=== PATIENT | male | born 1980 | race African-American/Black ===

== ENCOUNTER 2016-12-13 19:29 | Inpatient (IN) | payer MEDICAID ==
[~2016-12-13] VITALS: Ht 182.9 cm; Wt 81.6 kg
[2016-12-13] MEDS ORDERED: METOCLOPRAMIDE HCL 10 MG/2 ML VIAL IV ONE (20:15)
[2016-12-13] MEDS ORDERED: KETOROLAC TROMETHAMINE 15 MG INJ IV ONE (20:15)
[2016-12-13 20:37] LABS: *BILIRUBIN,URIN NEGATIVE (NEGATIVE); *BLOOD, URINE NEGATIVE (NEGATIVE); *CLARITY,URINE CLEAR (CLEAR); *COLOR,URINE YELLOW (YELLOW); *KETONES,URINE 1+ (NEGATIVE); *PROTEIN,URINE 1+ (NEGATIVE); *UROBILINOGEN,URINE 0.2 E.U./dl (NORMAL); LEUKOCYTE ESTERASE ,URINE NEGATIVE (NEGATIVE); NITRITE, URINE NEGATIVE (NEGATIVE); UGLUCOSE NEGATIVE (NEGATIVE)
[2016-12-13 20:40] LABS: BASOPHILS # (AUTO) 0.1 K/uL (0.0-8.0); HEMATOCRIT 44.5 % (40-50); HEMOGLOBIN 14.7 G/DL (14.0-18.0); LYMPHOCYTES % (AUTO) 20.5 % (20.5-51.5); MEAN CORPUSCULAR HEMOGLOBIN 32.1 UUG (27.0-31.0); MEAN CORPUSCULAR HGB CONC 33 g/dL (32.0-37.0); MEAN CORPUSCULAR VOLUME 96.8 FL (82.0-92.0); MONOCYTES # (AUTO) 0.4 K/UL (0.1-1.30); NEUTROPHILS # (AUTO) 7.2 K/UL (1.8-8.9); NEUTROPHILS % (AUTO) 74.5 % (38.5-71.5); PLATELET COUNT (AUTO) 199 K/UL (150-450); RED BLOOD CELL COUNT(AUTO) 4.59 MIL/UL (4.7-6.1); WHITE BLOOD COUNT (AUTO) 9.8 K/UL (4.0-11.2)
[2016-12-13 20:43] LABS: BACTERIA,URINE FEW /HPF (NONE SEEN); MUCUS,URINE MANY /LPF (0-FEW); RBC,URINE 0-3 /HPF (0-3); SQUAMOUS EPITHELIAL CELL,UR FEW /HPF (NONE SEEN); WBC,URINE 0-3 /HPF (0-3)
[2016-12-13 20:48] LABS: ETHANOL < 3 MG/DL (0-0)
[2016-12-13 20:50] LABS: ALANINE AMINOTRANSFERASE 26 U/L (16-63); ALKALINE PHOSPHATASE 76 U/L (50-136); ASPARTATE AMINOTRANSFERASE 21 U/L (15-37); BILIRUBIN,DIRECT 0.2 mg/dL (0.0-0.2); BILIRUBIN,TOTAL 0.7 mg/dL (0.2-1.0); CARBON DIOXIDE 27 mmol/L (21-32); CHLORIDE 102 mmol/L (98-107); CREATININE 1.2 mg/dL (0.6-1.3); GLUCOSE 100 mg/dL (74-106); POTASSIUM 3.6 mmol/L (3.5-5.1); TOTAL PROTEIN, SERUM 8.4 g/dL (6.4-8.2); UREA NITROGEN, BLOOD 10 mg/dL (7-18)
[2016-12-13] MEDS ORDERED: IBUPROFEN 800 MG TABLET PO ONE (21:00)
[2016-12-13] MEDS ORDERED: IBUPROFEN 800 MG TABLET ONE (21:05)
[2016-12-13 21:06] LABS: LIPASE 688 U/L (73-393)
[2016-12-13 21:08] LABS: ACETAMINOPHEN < 2.0 ug/mL (10-30)
[2016-12-13 21:23] LABS: *AMPHETAMINE, URINE POSITIVE (NEGATIVE); *BARBITURATE, URINE NEGATIVE (NEGATIVE); *CANNABINOID, URINE POSITIVE (NEGATIVE); *COCCAINE, URINE NEGATIVE (NEGATIVE); *OPIATE, URINE NEGATIVE (NEGATIVE); *PHENCYCLIDINE SCREEN,URINE NEGATIVE (NEGATIVE)
--- NOTE | 2016-12-13 21:24 | NUR ---
Call placed to [facility], Dr. Melgoza will be paged.
--- NOTE | 2016-12-13 22:08 | NUR ---
2nd call placed to [facility], Dr. Melgoza will be paged.
--- NOTE | 2016-12-13 22:35 | NUR ---
3rd call placed to [facility], Dr. Melgoza will be paged.
--- NOTE | 2016-12-13 23:10 | NUR ---
RECEIVED PATIENT VIA W/C FROM ER. PATIENT IS A/O X4. C/O MILD DISCOMFORT UPON ADMISSION TO FLOOR. NO RESP. DISTRESS NOTED. VSS. H/L INTACT AND PATENT, NOTED TO LEFT AC #18 GAUGE. ORIENTED TO ROOM AND CALL LIGHT. CALL LIGHT IN REACH. ALL NEEDS ATTENDED. WILL CONTINUE TO MONITOR.
[2016-12-13 23:15] VITALS: BP 124/74
[2016-12-14] MEDS ORDERED: IV NS 1000 ML 1,000 ML IV PRN (00:49)
[2016-12-14] MEDS ORDERED: LORAZEPAM 2 MG/1 ML VIAL IV PRN (01:00)
[2016-12-14] MEDS ORDERED: MORPHINE SULFATE 2 MG/1 ML DISP.SYRIN IV PRN (01:00)
[2016-12-14] MEDS ORDERED: ONDANSETRON 4 MG/2 ML VIAL IV PRN (01:00)
[2016-12-14] MEDS ORDERED: ACETAMINOPHEN 325 MG TABLET PO PRN (01:00)
[2016-12-14] MEDS ORDERED: ENOXAPARIN SODIUM 40 MG/0.4 ML DISP.SYRIN SQ SCH (01:00)
[2016-12-14] MEDS ORDERED: ZOLPIDEM 5 MG TABLET PO PRN (01:00)
[2016-12-14] MEDS ORDERED: ENOXAPARIN SODIUM 40 MG/0.4 ML DISP.SYRIN SQ ONE (01:30)
[2016-12-14 04:46] VITALS: BP 124/77
--- NOTE | 2016-12-14 06:35 | NUR ---
PATIENT ASLEEP IN BED. IVF INFUSING WELL TO LEFT AC ORDERED. DENIES PAIN. CALL LIGHT IN REACH. ALL NEEDS ATTENDED. WILL CONTINUE TO MONITOR AND ASSESS.
[2016-12-14 07:03] LABS: BILIRUBIN,TOTAL 0.9 mg/dL (0.2-1.0); MAGNESIUM 1.9 mg/dL (1.8-2.4); PHOSPHOROUS 3.4 mg/dL (2.5-4.9); POTASSIUM 3.7 mmol/L (3.5-5.1)
[2016-12-14 07:06] LABS: BASOPHILS % (AUTO) 0.1 % (0.0-2.0); EOSINOPHILS % (AUTO) 0.4 % (0.0-7.0); HEMATOCRIT 43.5 % (40-50); HEMOGLOBIN 14.5 G/DL (14.0-18.0); LYMPHOCYTES # (AUTO) 2.6 K/UL (0.8-4.8); LYMPHOCYTES % (AUTO) 38.3 % (20.5-51.5); MEAN CORPUSCULAR HEMOGLOBIN 32.3 UUG (27.0-31.0); MEAN CORPUSCULAR HGB CONC 33 g/dL (32.0-37.0); MEAN CORPUSCULAR VOLUME 96.7 FL (82.0-92.0); MONOCYTES # (AUTO) 0.5 K/UL (0.1-1.30); MONOCYTES % (AUTO) 7.4 % (0.0-11.0); NEUTROPHILS # (AUTO) 3.7 K/UL (1.8-8.9); NEUTROPHILS % (AUTO) 53.8 % (38.5-71.5); PLATELET COUNT (AUTO) 190 K/UL (150-450)
[2016-12-14 07:16] LABS: WHITE BLOOD COUNT (AUTO) 6.8 K/UL (4.0-11.2)
--- NOTE | 2016-12-14 08:00 | NUR ---
Pt is in no acute distress. Discussed plan of care with pt re: full liquid status for diet and prober pain management Pt agreeable with plan of care
[2016-12-14 11:17] VITALS: BP 123/55
--- NOTE | 2016-12-14 12:00 | NUR ---
Regular diet tolerated by pt awaiting further orders from hospitalist.
[2016-12-14] MEDS ORDERED: ACET325T53 PO (14:28)
--- NOTE | 2016-12-14 15:00 | NUR ---
Pt is in no acute distress. Discharge instructions given to pt. Pt verbalized understanding. Pt refused any vaccinations. No prescription written. PT to f/u with PMD within 1 week. D/c papers given to pt. IV d/c.
[2016-12-14 15:14] VITALS: BP 119/71
[2016-12-15 08:08] LABS: AFP, TUMOR MARKER 3.9 ng/mL (0.0-8.3)
[2016-12-15] MEDS ORDERED: ENOXAPARIN SODIUM 40 MG/0.4 ML DISP.SYRIN SQ SCH (09:00)
== END 2016-12-14 15:10 | disposition home or self-care (01) | DRG 282 ==
LOC: ER 19:29 → MED 21:54
PROVIDERS: ADMIT Nurse Practitioner Acute Care; ATTEND Nurse Practitioner Acute Care
DX: K85.90 Acute pancreatitis without necrosis or infection, unspecified (principal); N17.0 Acute kidney failure with tubular necrosis; E87.1 Hypo-osmolality and hyponatremia; F23 Brief psychotic disorder; F41.0 Panic disorder [episodic paroxysmal anxiety]; E86.0 Dehydration; F09 Unspecified mental disorder due to known physiological condition; G43.909 Migraine, unspecified, not intractable, without status migrainosus; D18.03 Hemangioma of intra-abdominal structures; F17.210 Nicotine dependence, cigarettes, uncomplicated; F31.9 Bipolar disorder, unspecified; F19.20 Other psychoactive substance dependence, uncomplicated
CPT/HCPCS: 36415; 70030-TC; 71010; 76700; 80307; 82105; 83605; 83690; 83735; 84100; 85025; 85730; 87040; 93005; A4663; G0480; G0480-TC; J1650; J7030

== ENCOUNTER 2017-05-15 20:37 | Emergency (ER) | payer MEDICAID, OTHER ==
[~2017-05-15] VITALS: Ht 185.4 cm; Wt 89.4 kg
[~2017-05-15 20:37] MED LIST: ACET325T53 PO
--- NOTE | 2017-05-15 21:45 | NUR ---
DAVIN DUMONT at bedside for MSE
--- NOTE | 2017-05-15 22:36 | NUR ---
Patient discharged to home in stable conditon. no SI, and no acute distress. Written and verbal after care instructions given with referrals security and compliance analyst called, pt refusing to leave room. food and bus token given.
[2017-05-15 22:38] VITALS: BP 111/72
== END 2017-05-15 22:39 | disposition home or self-care (01) ==
LOC: ER 20:39 → EDBD 20:39 → ER 22:39
DX: Z76.0 Encounter for issue of repeat prescription (principal); K29.70 Gastritis, unspecified, without bleeding; B07.0 Plantar wart; F25.9 Schizoaffective disorder, unspecified; F17.200 Nicotine dependence, unspecified, uncomplicated; G43.909 Migraine, unspecified, not intractable, without status migrainosus
CPT/HCPCS: A4663

== ENCOUNTER 2019-05-11 21:10 | Emergency (ER) | payer OTHER ==
[~2019-05-11] VITALS: Ht 185.4 cm; Wt 86.2 kg
[2019-05-11] MEDS ORDERED: GABA-534 PO (21:33)
--- NOTE | 2019-05-11 22:05 | NUR ---
Dr. Harvey at bedside for MSE.
[2019-05-11] MEDS ORDERED: MAG HYDROX/AL HYDROX/SIMETH 30 ML LIQUID UDC PO ONE (22:15)
[2019-05-11] MEDS ORDERED: FAMOTIDINE 20 MG TABLET PO ONE (22:15)
[2019-05-11] MEDS ORDERED: IBUPROFEN 600 MG TABLET PO ONE (22:15)
[2019-05-11] MEDS ORDERED: LIDOCAINE VISCUS 2% 15 ML UDC MM ONE (22:15)
--- NOTE | 2019-05-11 23:06 | NUR ---
Patient discharged to home in stable conditon. Written and verbal after care instructions given. Patient verbalizes understanding of instructions. Pt ambulated out of ER with steady gait, no acute signs of distress, VSS, all belongings taken.
[2019-05-11 23:07] VITALS: BP 148/102
== END 2019-05-11 23:07 | disposition home or self-care (01) ==
LOC: ER 21:12
DX: G89.29 Other chronic pain (principal); M79.672 Pain in left foot; M79.671 Pain in right foot; R10.13 Epigastric pain; F31.9 Bipolar disorder, unspecified; F41.9 Anxiety disorder, unspecified; F20.9 Schizophrenia, unspecified; F17.200 Nicotine dependence, unspecified, uncomplicated; Z88.8 Allergy status to other drugs, medicaments and biological substances; Z79.899 Other long term (current) drug therapy
CPT/HCPCS: A4663